=== PATIENT | female | born 1965 | race Two or more races ===

== ENCOUNTER → 2021-06-15 08:12 | Outpatient (BNVA) | payer MEDICAID, SELFPAY | PROVIDERS: PCP Family Medicine; Visit Provider Physician Assistant | DX: E03.9 Hypothyroidism, unspecified (principal); F31.9 Bipolar disorder, unspecified; F90.9 Attention-deficit hyperactivity disorder, unspecified type; E11.9 Type 2 diabetes mellitus without complications; K21.9 Gastro-esophageal reflux disease without esophagitis; Z87.891 Personal history of nicotine dependence; Z98.84 Bariatric surgery status | CPT/HCPCS: Q3014 ==

== ENCOUNTER → 2021-07-13 14:44 | Outpatient (BNVA) | payer MEDICAID, SELFPAY | PROVIDERS: PCP Family Medicine; Visit Provider Physician Assistant | DX: E66.01 Morbid (severe) obesity due to excess calories (principal); Z68.41 Body mass index [BMI] 40.0-44.9, adult; Z98.84 Bariatric surgery status | CPT/HCPCS: 99212 ==

== ENCOUNTER 2021-09-07 09:00 | Outpatient (REF) | payer MEDICAID, SELFPAY ==
[2021-09-07 09:37] LABS: MANUAL DIFF FLAG NO
[2021-09-07 10:03] LABS: Basophils Percent Auto 0.5 % (0-2); Eosinophils Absolute Auto 0.1 X10*3/uL (0.0-0.4); Eosinophils Percent Auto 1.3 % (0-4); Hematocrit 40.3 % (37.0-47.0); Hemoglobin 13.2 g/dl (12.0-16.0); Imm Gran Abs Auto 0.02 X10*3/uL (0.00-0.03); Imm Gran Pct Auto 0.3 % (0.0-0.4); Lymphocytes Percent Auto 31.5 % (20-40); Mean Corpuscular HGB Conc 32.8 g/dl (31.0-35.0); Mean Corpuscular Hemoglobin 30.8 pg (27.0-33.0); Mean Corpuscular Volume 93.9 fL (80.0-98.0); Mean Platelet Volume 10.2 fL (9.4-12.3); Monocytes Absolute Auto 0.4 X10*3/uL (0.1-1.2); Neutrophils Absolute Auto 3.8 x10*3/uL (2.0-8.3); Neutrophils Percent Auto 60.4 % (45-73); Platelet Count 246 X10*3/uL (160-400); Red Blood Count 4.29 X10*6/uL (4.20-5.50); Red Cell Distribution Width 13.9 % (11.0-16.0); White Blood Count 6.3 X10*3/uL (4.8-10.8)
[2021-09-07 10:24] LABS: Alanine Aminotransferase 16 U/L (0-31); Albumin Level 4.4 g/dL (3.5-5.0); Alkaline Phosphatase 68 U/L (39-117); Anion Gap 11 (12-20); Aspartate Amino Transferase 21 U/L (5-31); Bilirubin Total 0.5 mg/dL (0.0-1.0); Blood Urea Nitrogen 14 mg/dL (9-16); C Reactive Protein 0.61 mg/dL (< or = 0.50); Carbon Dioxide 27 mmol/L (22-29); Chloride 107 mmol/L (96-108); Cholesterol 327 mg/dL; Estimated Glomerular Filt Rate > 60; Glucose Random 77 mg/dL (60-115); HDL Cholesterol 79 mg/dL; Iron 121 mcg/dL (30-160); LDL Cholesterol Calculated 234 mg/dl; Percent Iron Saturation 32 % (15-50); Sodium 141 mmol/L (135-145); Total Iron Binding Capacity 380 mcg/dL (228-428); Total Protein 7.8 g/dL (6.5-8.0); Triglycerides 71 mg/dL; Unsaturated Iron Binding 259 ug/dL
[2021-09-07 10:49] LABS: Ferritin 119 ng/mL (10-250); Insulin 6 uU/mL (2-29); TSH reflex Free T4 4.11 uIU/mL (0.32-4.0); Vitamin D 25-OH Total 28.5 ng/mL (>30)
[2021-09-07 11:27] LABS: Free T4 (Free Thyroxine) 1.06 ng/dL (0.71-1.85)
[2021-09-07 11:42] LABS: Estimated Average Glucose 108 mg/dL; Hemoglobin A1c % 5.4 %
[2021-09-07 11:54] LABS: Folate 19.2 ng/mL (> or = 4.0); Vitamin B12 356 pg/mL (200-900)
[2021-09-10 12:47] LABS: Calcium (PTHI) 9.9 mg/dL (8.6-10.4); PTHI 54 pg/mL (16-77)
[2021-09-11 04:56] LABS: Zinc 90 mcg/dL (60-130)
[2021-09-12 15:07] LABS: Vitamin A 54 mcg/dL (38-98)
[2021-09-14 18:16] LABS: Vitamin B1 11 nmol/L (8-30)
== END 2021-09-07 09:01 | disposition home or self-care (01) ==
LOC: HO.LAB 09:00
PROVIDERS: PCP Family Medicine; Visit Provider Physician Assistant
DX: E66.9 Obesity, unspecified (principal); E03.9 Hypothyroidism, unspecified; E11.9 Type 2 diabetes mellitus without complications; F31.9 Bipolar disorder, unspecified; F90.9 Attention-deficit hyperactivity disorder, unspecified type; K21.9 Gastro-esophageal reflux disease without esophagitis; Z87.891 Personal history of nicotine dependence; Z98.84 Bariatric surgery status
CPT/HCPCS: 36415; 80053; 80061; 82306; 82607; 82728; 82746; 83036; 83525; 83540; 83970; 84425; 84439; 84443; 84590; 84630; 85025; 86140

== ENCOUNTER 2023-04-07 08:13 | Outpatient (AMB) | payer MEDICAID, SELFPAY ==
--- NOTE | 2023-04-07 13:09 | MHC.OFFVISWM ---
Intake VS Expanded 04/07/23 13:36 Height 5 ft 4.5 in Weight 273 lb 8 oz BMI 46.2 Body Fat % 50.4 Body Fat Mass 137.9 Fat Free Mass 128.3 Visceral Fat Rating 17 Body Water % 35.4 Body Water Mass 96.9 Basal Metabolic Rate/Score 1,695 Intake Visit Reasons: TV PO LSG 03/03/18 Allergies Penicillins [PENICILLINS] Allergy (Severe, Verified 04/07/23 13:19) ANAPHYLAXIS oxycodone [From PERCOCET] Adverse Reaction (Unknown, Verified 04/07/23 13:19) PAST ABUSE Vgtmykl-GMG-VvC Reductase Inhibitor [[id number]-BQH REDUCTASE INHIBITOR] Adverse Reaction (Unknown, Verified 04/07/23 13:19) MUSCLE CRAMPS Does not like to take narcotic Allergy (Unknown, Uncoded 04/07/23 13:19) Unknown Penicillin Allergy (Unknown, Uncoded 04/07/23 13:19) Anaphylaxis Pt states no known allergy to Allergy (Unknown, Uncoded 04/07/23 13:19) Unknown Medication List - Last Reconciled 04/07/23 by Marcus Obrien MD levothyroxine 100 orally daily; lisinopril 20 mg PO DAILY tf-[id number]-[id number] carb-vit K 18 mg-400 mcg- 500 mg-50 mcg (Women's Multivitamin) tabs PO omeprazole magnesium (Acid Bullet Assembly Press Operator (omeprazole)) 20 mg PO DAILY quetiapine (Seroquel) 150 mg PO DAILY HPI TV PO LSG 03/03/18 HPI Details Start time: 1.12pm, End time: 1.42pm ?I spent 25 minutes speaking with the patient on the phone plus an additional 5 minutes reviewing and updating records for a total of 30 minutes HPI Comments History of Present Illness Details Overall weight loss: 67lbs, or 19.66% TBWL. Has gained about 60lbs since her last follow-up with me Complains of GERD. Smoking cigarettes and Marijuana Wakes up: 4.30-5am, sleeps: 8pm Is doing one scrambled egg or a moka5 liquid shake (25gr), 11am: moka5 protein bar 15gr, lunch at 12pm: sandwich or portuguese food, dinner: 6pm (meat and vegetables) and cookies or waffles with 7.30pm Exercise: none PFSH Surgical History H/O eye surgery H/O right knee surgery H/O thyroidectomy History of left knee surgery Family History (Updated 07/13/21 @ 15:00 by Arline Fenton CMA) Mother Pre-diabetes Father Diabetes Prostate cancer Sister COPD (chronic obstructive pulmonary disease) (Updated 07/13/21 @ 15:01 by Arline Fenton CMA) Alcohol intake: current Alcohol intake frequency: a few times a week Alcohol type: hard liquor Patient Tobacco Use Status: Current everyday Tobacco user Tobacco use type: Cigarette Cigarettes Per Day: 3 Substance Use Type: Marijuana Assessment & Plan Assessment & Plan (1) Morbid obesity: Code(s): E66.01 - Morbid (severe) obesity due to excess calories Plan: 1. Please change nutritional plan to one [employer] premade shake at 6-8am, 2 [employer] protein bars at 9am-11am and 12pm-2pm, dinner at 3pm (6 forks of protein and 6 forks of salad or vegetables) and one more [employer] bar at 5pm-7pm 2. Start stationary bike at a resistance level of 4.0 Increase level by 1.0 every 3 min to a max level of 10.0. Stay at this level for 3 min and then return to level 4.0 and repeat same steps until 300 calories are burned. Goal is to burn 2000 calories per week on exercise, which means either 300 calories daily, or 400 calories 5 days per week, or 500 calories 4 days per week, or 650 calories 3 days per week. 3. Send weight measurements weekly on Mondays 4. Take the Phentermine daily at 9am 5. We discussed the potential side-effects of the Phentermine such as irritability, dry mouth, difficulty sleeping, dizziness, numbness in feet and high blood pressure. I asked her to get a blood pressure monitor and measure the blood pressure daily in the morning and evening. She needs to send the blood pressure readings daily and to call the office for blood pressure over 140/80 and she understands that. Medications: New phentermine must administer 30 minutes before or 1-2 hours after breakfast 37.5 mg PO DAILY 14 caps 0RF E66.01 - Morbid (severe) obesity due to excess calories Telehealth Telehealth Location of provider rendering services: practice address Location of patient: address on file Patient Identification confirmed using: Name, : Yes Telehealth method: voice only Patient verbally consented to treatment: Yes Patient verbally consented to billing insurance company: Yes Patient informed of any privacy concerns related to visit: Yes Minutes spent on Phone/Video with Pt.: 30 Coding Level of Care Code Tele Est Pt Level 4 (52246) Diagnoses Morbid obesity E66.01 Time Spent (min) 30
[2023-04-07 13:36] VITALS: BMI 46.2
== END 2023-04-07 13:43 | disposition home or self-care (01) ==
LOC: HO.HBS 08:13
PROVIDERS: PCP Family Medicine; Visit Provider Surgery
DX: E66.01 Morbid (severe) obesity due to excess calories (principal); Z68.42 Body mass index [BMI] 45.0-49.9, adult
CPT/HCPCS: 99214

== ENCOUNTER → 2023-04-07 08:13 | Outpatient (BNVA) | payer MEDICAID, SELFPAY | PROVIDERS: PCP Family Medicine; Visit Provider Surgery ==

== ENCOUNTER 2023-06-16 13:30 | Outpatient (AMB) | payer MEDICAID, SELFPAY ==
--- NOTE | 2023-06-16 13:40 | MHC.OFFVISWM ---
Intake VS Expanded 06/16/23 13:42 Height 5 ft 4.5 in Weight 258 lb 4 oz BMI 43.6 Intake Visit Reasons: TV PO LSG 03/03/18 Allergies Penicillins [PENICILLINS] Allergy (Severe, Verified 04/07/23 13:19) ANAPHYLAXIS oxycodone [From PERCOCET] Adverse Reaction (Unknown, Verified 04/07/23 13:19) PAST ABUSE Eurzdkk-JBI-VzN Reductase Inhibitor [[id number]-ZYW-SYY REDUCTASE INHIBITOR] Adverse Reaction (Unknown, Verified 04/07/23 13:19) MUSCLE CRAMPS Does not like to take narcotic Allergy (Unknown, Uncoded 04/07/23 13:19) Unknown Penicillin Allergy (Unknown, Uncoded 04/07/23 13:19) Anaphylaxis Pt states no known allergy to Allergy (Unknown, Uncoded 04/07/23 13:19) Unknown HPI HPI Comments History of Present Illness Details 58 yo woman s/p LSG 2017 with inadequate weight loss and substance use. Saw Dr Hollingsworth in Mar 2023 - prescribed Phentermine but could not tolerate it after 3-4 days. She has been sending Dr Hollingsworth her weights weekly, but did not weigh herself today. Has lost 15 lbs - and now no weight loss. She states she stopped ETOH (except for her birthday). Marijuana edibles - - does not result extra food. Meal plan: 1 shake, 2 bars, 1 meal 6-7 pm , bed at 8pm. Eats at 9pm - stopped this last month with her birthday. Eats when bored. [facility] Surgical History H/O eye surgery H/O right knee surgery H/O thyroidectomy History of left knee surgery Family History (Updated 07/13/21 @ 15:00 by Arline Fenton CMA) Mother Pre-diabetes Father Diabetes Prostate cancer Sister COPD (chronic obstructive pulmonary disease) Social History (Updated 07/13/21 @ 15:01 by Arline Fenton CMA) Alcohol intake: current Alcohol intake frequency: a few times a week Alcohol type: hard liquor Patient Tobacco Use Status: Current everyday Tobacco user Tobacco use type: Cigarette Cigarettes Per Day: 3 Substance Use Type: Marijuana Assessment & Plan Assessment & Plan (1) Morbid obesity: Code(s): E66.01 - Morbid (severe) obesity due to excess calories Plan: Pt is in weekly communication with Dr Hollingsworth. I reminded her that she is not following the meal plan that he created for her and that she should. We discussed her being more mindful about her eating habits, no ETOH and the need for daily exericise. She prefers dancing and videos at home does not want to go to gym. She will continue to communicate with Dr Hollingsworth and will have followups with me prn. Patient is still morbidly obese and is not considered stable at this time. I spent 28 minutes in total speaking with the patient via video conference counseling , reviewing records and charting in patients chart. . Telehealth Telehealth Location of provider rendering services: practice address Location of patient: address on file Patient Identification confirmed using: Name, : Yes Telehealth method: voice only Patient verbally consented to billing insurance company: Yes Patient informed of any privacy concerns related to visit: Yes Coding Level of Care Code Tele Est Pt Level 4 (81238) Diagnoses Morbid obesity E66.01
[2023-06-16 13:42] VITALS: BMI 43.6
== END 2023-06-16 14:05 | disposition home or self-care (01) ==
LOC: HO.HBS 13:45
PROVIDERS: PCP Family Medicine; Visit Provider Physician Assistant
DX: E66.01 Morbid (severe) obesity due to excess calories (principal); Z68.41 Body mass index [BMI] 40.0-44.9, adult; Z90.3 Acquired absence of stomach [part of]; Z98.84 Bariatric surgery status
CPT/HCPCS: 99214

== ENCOUNTER → 2023-06-16 13:30 | Outpatient (BNVA) | payer MEDICAID, SELFPAY | PROVIDERS: PCP Family Medicine; Visit Provider Physician Assistant ==